=== PATIENT | female | born 1945 | race Caucasian/White ===

== ENCOUNTER 2018-11-25 08:42 | Day surgery (SDC) | payer OTHER, BC ==
[2018-11-20 09:52] VITALS: BMI 34.7
[2018-11-25] MEDS ORDERED: KETOROLAC TROMETHAMINE 30 MG/1 ML VIAL ONE (10:34)
[2018-11-25] MEDS ORDERED: PROPOFOL 20 ML ONE (10:35)
[2018-11-25] MEDS ORDERED: MIDAZOLAM HCL 2 MG/2 ML SINGLE DOSE VIAL ONE (10:35)
--- NOTE | 2018-11-25 10:40 | HP ---
History & Physical Update - History History: No Change Currently as noted:: Postmenopausal bleeding, uterine polyp(s), COPD, pulmonary nodules - Physical Physical: No Change - Assessment Assessment: No Change Currently as noted:: Postmenopausal bleeding, uterine polyp(s) - Plan Plan: No Change (Postmenopausal bleeding, uterine polyp(s). Pt is admitted for hysteroscopy, D&C, polypectomy. Prior H&P (10/31/18) reviewed. Pt was examined, risks, benefits, alternatives of surgery reviewed w/pt.)
--- NOTE | 2018-11-25 11:34 | OP ---
Operative Note - Note: Operative Date: 11/25/18 Pre-Operative Diagnosis: Postmenopausal bleeding. Endometrial polyp Operation: Hysteroscopy, polypectomy, D&C Findings: Large endometrial polyp, atrophic endometrium Post-Operative Diagnosis: Same as Pre-op Surgeon: Jun Mcintosh Anesthesiologist/MELTER HELPER: Oliva Carver Anesthesia: General Specimens Removed: Endometrial polyp, endometrial curettings Estimated Blood Loss (mls): 4 Blood Volume Replaced (mls): 0 Fluid Volume Replaced (mls): 400 Operative Report Dictated: Yes
[2018-11-25] MEDS ORDERED: ONDANSETRON 4 MG/2 ML VIAL IVPUSH PRN (11:36)
[2018-11-25] MEDS ORDERED: oxyCODONE HCL 5 MG TABLET PO PRN (11:36)
[2018-11-25] MEDS ORDERED: LACTATED RINGERS SOLUTION 1,000 ML IV SCH (11:45)
[2018-11-25 13:33] VITALS: BP 150/78; PULSE 80; TEMP 97.4
--- NOTE | 2018-11-25 22:11 | OP ---
DATE OF OPERATION: 11/25/2018 PREOPERATIVE DIAGNOSES: Postmenopausal bleeding, endometrial polyp. POSTOPERATIVE DIAGNOSES: Postmenopausal bleeding, endometrial polyp. PROCEDURE: Hysteroscopy, dilatation and curettage, polypectomy. SURGEON: Jocelyn Gutierrez MD ANESTHESIOLOGIST: Oliva Carver MD ANESTHESIA: General. COMPLICATIONS: None. ESTIMATED BLOOD LOSS: Less than 5 mL. INTRAVENOUS FLUIDS: Crystalloids 400 mL. PATHOLOGY: Endometrial polyp and endometrial curettings. FINDINGS: Examination under anesthesia revealed a small anteverted uterus, freely mobile within pelvis. No pelvic or adnexal masses were noted. Hysteroscopy revealed an atrophic endometrial cavity with a large endometrial polyp. Hysteroscopy revealed a normal uterine cavity without polyp at the end of the procedure. DESCRIPTION OF PROCEDURE: The patient was met preoperatively. Risks, benefits, and alternatives of surgery were discussed in details. All questions were answered. The patient was brought to the OR with the IV running. She was placed on the surgical table in the supine position. The general anesthesia was achieved without difficulty. The patient was then placed in a dorsal lithotomy position using adjustable Thierno stirrups. She was examined under anesthesia with the findings as described above. The patient was then prepped and draped in the usual sterile fashion. A timeout procedure was conducted as per standard protocol. A weighted speculum was then introduced inside the patient's vagina with good visualization of the cervix. The cervix was grasped with a single-tooth tenaculum. The cervix was then dilated to accommodate a size 13 Bañuelos dilator. A diagnostic hysteroscope was then introduced through the cervical os into the uterine cavity with the findings as described above. The hysteroscope was then removed. The endocervical canal was then dilated to accommodate a size 27 Bañuelos dilator. A polyp forcep was then used to grasp the endometrial polyp. The endometrial polyp was then removed entirely and sent to Pathology for evaluation. A uterine curette was then used to sharp curettage the endometrial cavity. Once this was completed, the endometrial curettings were sent to Pathology. All instruments were removed from the patient. A final hysteroscopy revealed a normal endometrial cavity. Good hemostasis was confirmed. Sponge, lap, and needle counts were correct. The patient was returned to supine position. She was then transferred to recovery room in stable condition and awake. JOCELYN GUTIERREZ M.D. ALTA/[id number]
--- NOTE | 2018-11-26 18:01 | PATH ---
Surgical Pathology Report Patient Name: ZEV ROONEY [facility]. Rec. #: [id number] /Age/Gender: 1945 (Age: 73) / F Account: [id number] Location: [facility] SURGICAL Taken: 11/25/2018 Received: 11/25/2018 Reported: 11/26/2018 Physicians: Jun Mcintosh M.D. Specimen(s) Received A: ENDOMETRIAL CURETTINGS B: ENDOMETRIUM POLYPS Clinical History Postmenopausal bleeding, endometrial polyp Final Diagnosis A. ENDOMETRIAL CURETTINGS: SCANTY FRAGMENTS OF SUPERFICIAL WEAKLY PROLIFERATIVE ENDOMETRIAL GLANDS WITHOUT STROMA. SEPARATE ENDOCERVICAL TISSUE AND SQUAMOUS EPITHELIUM WITH NO DIAGNOSTIC ABNORMALITIES. B. ENDOMETRIAL POLYPS, EXCISION: FRAGMENTS OF ENDOMETRIAL POLYP. Electronically Signed Villa Silverman M.D. Gross Description A. Received in formalin labeled "endometrial curettings," is a 1.7 x 1.3 x 0.2 cm aggregate of red-brown soft tissue fragments admixed with mucus. The formalin is filtered and the specimen is entirely submitted in one cassette. B. Received in formalin labeled "endometrial polyp," is a 2.7 x 2.1 x 0.3 cm aggregate of multiple santiago-red, irregular to polypoid portions of soft tissue. The specimen is submitted in toto in one cassette. 11/25/201811/25/2018
== END 2018-11-25 13:33 | disposition home or self-care (01) ==
LOC: JASU-SURG 08:42
PROVIDERS: ATTEND Obstetrics & Gynecology
PROC: 0UJD8ZZ Inspection of Uterus and Cervix, Via Natural or Artificial Opening Endoscopic (ICD-10-PCS; 2018-11-25)
PROC: 0UB97ZX Excision of Uterus, Via Natural or Artificial Opening, Diagnostic (ICD-10-PCS; principal; 2018-11-25 10:30)
PROC: 0UDB7ZX Extraction of Endometrium, Via Natural or Artificial Opening, Diagnostic (ICD-10-PCS; 2018-11-25 10:30)
DX: N95.0 Postmenopausal bleeding (principal); N84.0 Polyp of corpus uteri
CPT/HCPCS: 86850; 86900; 86901; 88305-TC; 94760